=== PATIENT | female | born 1975 | race Caucasian/White ===

== ENCOUNTER → 2023-01-19 12:42 | Outpatient (CLI) | payer BC, SELFPAY ==
[2023-01-19 14:08] LABS: Magnesium 2.1 mg/dl (1.6-2.3)
[2023-01-19 14:26] LABS: 25-OH Vitamin D, Total 40.8 ng/mL (30-100)
[2023-01-19 15:19] LABS: Folate > 20.00 ng/mL
[2023-01-19 15:47] LABS: Iron 120 ug/dL (37-170)
[2023-01-22 14:12] LABS: Vitamin B1 159.6 nmol/L (66.5-200.0)
[2023-01-23 06:13] LABS: Vitamin A 51.5 ug/dL (20.1-62.0)
[2023-01-24 11:19] LABS: Selenium 211 ug/L (100-340)
[2023-01-25 08:05] LABS: Zinc 82 ug/dL (44-115)
== END ==
PROVIDERS: PCP Family Medicine; Visit Provider Physician Assistant
DX: Z98.84 Bariatric surgery status (principal)
CPT/HCPCS: 36415; 82306; 82525; 82746; 83540; 83735; 84255; 84425; 84590; 84630